=== PATIENT | female | born 1985 | race Caucasian/White ===

== ENCOUNTER 2017-08-12 14:15 | Emergency (ER) | END 2017-08-12 18:59 | disposition home or self-care (01) ==

== ENCOUNTER 2018-02-27 18:39 | Emergency (ER) | END 2018-02-27 21:53 | disposition home or self-care (01) ==

== ENCOUNTER 2018-10-28 21:08 | Emergency (ER) | payer SELFPAY ==
[~2018-10-28 21:08] MED LIST: IBUP-1542 PO; ORPH100T PO; PREN1TAB49
== END 2018-10-28 21:47 | disposition left against medical advice (07) ==
LOC: E/R 21:08
DX: Z53.21 Procedure and treatment not carried out due to patient leaving prior to being seen by health care provider (principal)